=== PATIENT | male | born 1940 | race Caucasian/White ===

== ENCOUNTER → 2017-09-23 | Outpatient (CLI) | payer MEDICARE ==
[~2017-09-23] MED LIST: CIPR-214 PO; DILT120C PO; HYDR-4309 PO; LISI20TA29 PO; METR-1 PO; WARF5TAB23 PO
== END ==
LOC: LAB 10:27
PROVIDERS: ATTEND Internal Medicine Hematology & Oncology
DX: D50.0 Iron deficiency anemia secondary to blood loss (chronic) (principal); T45.4X5D Adverse effect of iron and its compounds, subsequent encounter
CPT/HCPCS: 36415; 85027

== ENCOUNTER → 2018-04-24 | Outpatient (CLI) | payer MEDICARE ==
[~2018-04-24] MED LIST changes: +CYAN50TA3 PO; +DILT120C18 PO; +GARL600T2 PO; +GING500C3 PO; +GINK120C PO; +NATOKINASE PO; +SALM1CAP3 PO; +TURM538C
[2018-04-24 13:05] LABS: PLATELET COUNT, AUTOMATED 125 K/uL (150-450)
== END ==
LOC: LAB 12:24
PROVIDERS: ATTEND Internal Medicine Hematology & Oncology
DX: D50.0 Iron deficiency anemia secondary to blood loss (chronic) (principal); D69.6 Thrombocytopenia, unspecified; D75.89 Other specified diseases of blood and blood-forming organs; I48.91 Unspecified atrial fibrillation
CPT/HCPCS: 36415; 82525; 82607; 82746; 83615; 83921; 84443; 85025; 85045

== ENCOUNTER → 2018-06-05 | Outpatient (CLI) | payer MEDICARE ==
[~2018-06-05] MED LIST changes: -HYDR-4309 PO; +HYDR-653 PO
[2018-06-05 11:00] LABS: PLATELET COUNT, AUTOMATED 123 K/uL (150-450)
== END ==
LOC: LAB 10:31
PROVIDERS: ATTEND Internal Medicine Hematology & Oncology
DX: D50.0 Iron deficiency anemia secondary to blood loss (chronic) (principal); D69.6 Thrombocytopenia, unspecified; D75.89 Other specified diseases of blood and blood-forming organs
CPT/HCPCS: 85025

== ENCOUNTER → 2018-06-05 | Outpatient (CLI) | payer MEDICARE ==
[2018-06-05 11:13] LABS: INR 1.22
== END ==
LOC: LAB 10:29
PROVIDERS: ATTEND Family Medicine
DX: Z79.01 Long term (current) use of anticoagulants (principal)
CPT/HCPCS: 36415; 85610

== ENCOUNTER → 2018-06-12 | Outpatient (CLI) | payer MEDICARE ==
[2018-06-12 10:46] LABS: INR 1.76
== END ==
LOC: LAB 10:08
PROVIDERS: ATTEND Family Medicine
DX: Z51.81 Encounter for therapeutic drug level monitoring (principal); Z79.01 Long term (current) use of anticoagulants
CPT/HCPCS: 36415; 85610

== ENCOUNTER → 2018-06-24 | Outpatient (CLI) | payer MEDICARE ==
[~2018-06-24] MED LIST changes: +FLU180SY11 IM; +MULT-56 PO
[2018-06-24 12:05] LABS: INR 1.73
== END ==
LOC: LAB 11:35
PROVIDERS: ATTEND Family Medicine
DX: Z51.81 Encounter for therapeutic drug level monitoring (principal); Z79.01 Long term (current) use of anticoagulants
CPT/HCPCS: 36415; 85610